=== PATIENT | male | born 1965 ===

== ENCOUNTER 2018-05-11 13:00 | Emergency (ER) | payer OTHER, SELFPAY ==
[2018-05-11 13:06] VITALS: BP 177/96; PULSE 74; RESP 18; TEMP 36.3; O2SAT 98
--- NOTE | 2018-05-11 13:08 | DI.RAD.S_ITS ---
PROCEDURE: XR CHEST 2V INDICATIONS: shortness of breath TECHNIQUE: 2 views of the chest were acquired. COMPARISON: None. FINDINGS: Surgical changes and devices: None. Lungs and pleura: There is blunting of the right costophrenic angle consistent with small pleural effusions or pleural thickening. No left effusion. No acute consolidation. Mediastinum: Mediastinal contours are within normal limits. Heart size is normal. Bones and chest wall: No suspicious bony abnormalities. Soft tissues appear unremarkable. IMPRESSION: 1. Small right pleural effusion or pleural thickening. Dictated by: Stephon Mata M.D. on 05/11/2018 at 13:56 Approved by: Stephon Mata M.D. on 05/11/2018 at 13:57
[2018-05-11 13:20] LABS: Add Manual Diff / Slide Review NO; Basophils Percent Auto 0.6 % (0-2); Eosinophils Percent Auto 0.3 % (2-4); Hematocrit 43.9 % (41-53); Hemoglobin 14.8 g/dL (13.5-17.5); Lymphocytes Percent Auto 14.6 % (25-40); Mean Corpuscular HGB Conc 33.8 % (30-36); Mean Corpuscular Hemoglobin 27.9 PG (26-34); Mean Corpuscular Volume 82.6 fL (80-100); Monocytes Percent Auto 8.9 % (3-14); Neutrophils Absolute Auto 7600 /uL (3000-5900); Neutrophils Percent Auto 75.6 % (50-75); Platelet Count 219 X10^3/uL (150-400); Red Blood Cell Count 5.31 X10^6/uL (4.5-5.9); Red Cell Distribution Width 17.5 % (11.6-14.8); White Blood Cell Count 10.1 X10^3/uL (4.5-11.0)
[2018-05-11 13:32] LABS: Alanine Aminotransferase 33 IU/L (21-72); Albumin 4.1 g/dL (3.5-5.0); Albumin Globulin Ratio 1.2 (1.0-2.8); Alkaline Phosphatase 87 U/L (38-126); Aspartate Aminotransferase 25 IU/L (17-59); BUN Creatinine Ratio 12.2 (6-22); Bilirubin Total 0.6 mg/dL (0.2-1.3); Blood Urea Nitrogen 11 mg/dL (9-20); Calcium 9.3 mg/dL (8.4-10.2); Carbon Dioxide 30 mmol/L (22-32); Chloride 104 mmol/L (98-107); Estimated Glomerular Filt Rate > 60.0 mL/min (>60); Globulin 3.4 g/dL (1.7-4.1); Glucose 131 mg/dL (70-100); HEMOLYSIS < 15 (0-50); Sodium 142 mmol/L (137-145); Total Protein 7.5 g/dL (6.3-8.2)
[2018-05-11 16:11] VITALS: BP 169/101; PULSE 85; RESP 14; O2SAT 98
--- NOTE | 2018-05-11 16:17 | ED.SOB ---
HPI - SOB/Dyspnea <KUSHAL Plaza - Last Filed: 05/11/18 22:14> General Chief Complaint: Shortness of Breath/Dyspnea Stated Complaint: BLURRY VISION,HARD TO BREATH Time Seen by Provider: 05/11/18 16:17 Source: patient Mode of arrival: ambulatory Limitations: no limitations History of Present Illness 52-year-old male that his history of hemothorax and is a smoker here for complaint of having discomfort to his right chest wall over the past several months he has had hemothorax. He reports that he was concerned that he had an increased white count of few days ago and was placed on an antibiotic. He states that he has had pain to the area where the chest tube was since the timeframe that he had the hemothorax. He denies any chest pain to the anterior chest. He denies any shortness of breath. He states that he felt like he may be having some anxiety earlier today however symptom has resolved desires to go home at this timeframe. He states that he has no symptoms at this time. and denies any complications. Related Data Home Medications Medication Instructions Recorded Confirmed aspirin 81 mg PO QPM 05/11/18 05/11/18 zolpidem 1 tab PO BEDTIME PRN 05/11/18 05/11/18 Allergies Allergy/AdvReac Type Severity Reaction Status Date / Time No Known Drug Allergies Allergy Verified 05/11/18 13:08 Review of Systems <KUSHAL Plaza - Last Filed: 05/11/18 22:14> Constitutional Denies chills, Denies fever(s), Denies lethargy and Denies weakness Eyes Denies change in vision, Denies eye discharge, Denies irritation and Denies loss of vision ENT Ears, Nose, Mouth, and Throat: Denies change in voice, Denies neck pain and Denies sore throat Cardiovascular Denies chest pain, Denies irregular heart rhythm, Denies lightheadedness, Denies palpitations, Denies dyspnea, Denies dyspnea on exertion and Denies orthopnea Respiratory Denies cough, Denies dyspnea, Denies dyspnea on exertion and Denies wheezing Gastrointestinal Gastrointestinal: Denies abdominal pain, Denies change in bowel habits, Denies diarrhea, Denies nausea and Denies vomiting Genitourinary Denies hematuria, Denies flank pain, Denies urinary incontinence and Denies urinary urgency Musculoskeletal Denies neck pain Comments: Pain to right lateral chest wall. Integumentary/Breasts Denies pruritus, Denies erythema, Denies rash and Denies wounds Neurologic Denies confusion, Denies loss of vision and Denies weakness Psychiatric Denies anxiety, Denies confusion, Denies depression, Denies homicidal ideation and Denies suicidal ideation Endocrine Denies palpitations Hematologic/Lymphatic Denies easy bruising Allergic/Immunologic Denies wheezing Exam <KUSHAL Plaza - Last Filed: 05/11/18 22:14> Initial Vital Signs Initial Vital Signs: Vital Signs Temperature 97.3 F L 05/11/18 13:06 Pulse Rate 74 05/11/18 13:06 Respiratory Rate 18 05/11/18 13:06 Blood Pressure 177/96 H 05/11/18 13:06 Pulse Oximetry 98 05/11/18 13:06 Const General: cooperative and well developed Nutritional Appearance: well nourished Orientation: alert, awake, oriented x3 and not confused HENMT Mouth: oral mucosae normal and moist mucous membranes Eyes Conjunctivae: conjunctivae normal Sclera: sclerae normal Pupils: PERRL EOM: EOM intact bilaterally Chest Chest: normal inspection of the chest Resp Effort & Inspection: normal respiratory effort, able to speak in complete sentences, no respiratory distress and no use of accessory muscles Auscultation: clear to auscultation bilaterally, no rales, no rhonchi and no wheezes Cardio Rate: regular rate Rhythm: regular rhythm Heart Sounds: no click, no gallops, no murmurs and no rubs Pulses: normal peripheral pulses GI Inspection: non-distended Palpation: soft, no hepatosplenomegaly, No guarding, No pulsatile mass and No tender Auscultation: normal bowel sounds Skin General: no rashes or lesions noted, No jaundice and No petechiae Neuro General: alert, oriented x3, gait normal and no focal motor deficits Speech: speech normal <Gloria Jordan DO - Last Filed: 05/12/18 08:46> Initial Vital Signs Initial Vital Signs: Vital Signs Temperature 97.3 F L 05/11/18 13:06 Pulse Rate 74 05/11/18 13:06 Respiratory Rate 18 05/11/18 13:06 Blood Pressure 177/96 H 05/11/18 13:06 Pulse Oximetry 98 05/11/18 13:06 Course <KUSHAL Plaza - Last Filed: 05/11/18 22:14> Orders Ordered: ED Orders 05/11/18 13:14 Complete Blood Count AUTO DIFF Stat Comprehensive Metabolic Panel Stat Lactate (Lactic Acid) Stat Vital Signs - 8 hr 05/11/18 16:11 05/11/18 16:52 Pulse Rate 85 74 Respiratory Rate 14 19 Blood Pressure 169/101 H Blood Pressure [Left Arm] 169/101 H Pulse Oximetry 98 96 <Gloria Jordan DO - Last Filed: 05/12/18 08:46> Orders Ordered: ED Orders 05/11/18 13:14 Complete Blood Count AUTO DIFF Stat Comprehensive Metabolic Panel Stat Lactate (Lactic Acid) Stat Vital Signs - 8 hr 05/11/18 16:11 05/11/18 16:52 Pulse Rate 85 74 Respiratory Rate 14 19 Blood Pressure 169/101 H Blood Pressure [Left Arm] 169/101 H Pulse Oximetry 98 96 MDM - SOB/Dyspnea <KUSHAL Plaza - Last Filed: 05/11/18 22:14> Lab Data Result diagrams: 05/11/18 13:14 05/11/18 13:14 Lab Results 05/11/18 05/11/18 05/11/18 Range/Units 13:14 13:14 13:14 WBC 10.1 (4.5-11.0) X10^3/uL RBC 5.31 (4.5-5.9) X10^6/uL Hgb 14.8 (13.5-17.5) g/dL Hct 43.9 (41-53) % MCV 82.6 (80-100) fL MCH 27.9 (26-34) PG MCHC 33.8 (30-36) % RDW 17.5 H (11.6-14.8) % Plt Count 219 (150-400) X10^3/uL Neut % (Auto) 75.6 H (50-75) % Lymph % (Auto) 14.6 L (25-40) % [place] % (Auto) 8.9 (3-14) % Eos % (Auto) 0.3 L (2-4) % Baso % (Auto) 0.6 (0-2) % Neut # (Auto) 7600 H (0787-6898) /uL Sodium 142 (137-145) mmol/L Potassium 4.0 (3.4-5.1) mmol/L Chloride 104 (98-107) mmol/L Carbon Dioxide 30 (22-32) mmol/L BUN 11 (9-20) mg/dL Creatinine 0.90 (0.66-1.25) mg/dL Estimated GFR > 60.0 (>60) mL/min BUN/Creatinine Ratio 12.2 (6-22) Glucose 131 H (70-100) mg/dL Lactate 1.0 (0.7-2.1) mmol/L Calcium 9.3 (8.4-10.2) mg/dL Total Bilirubin 0.6 (0.2-1.3) mg/dL AST 25 (17-59) IU/L ALT 33 (21-72) IU/L Alkaline Phosphatase 87 (38-126) U/L Total Protein 7.5 (6.3-8.2) g/dL Albumin 4.1 (3.5-5.0) g/dL Globulin 3.4 (1.7-4.1) g/dL Albumin/Globulin Ratio 1.2 (1.0-2.8) Imaging Data Chest x-ray: Radiologist's impression: [address] [address] XRay Report Signed Patient: ESTUARDO BRIONES [facility]#: [id number] : 1965Acct:[id number] Age/Sex: 52 / MDate of Service: 05/11/18 Loc: ED Accession Number: [id number] Procedure: XR chest 2V Ordering Provider: Gloria Jordan D.O. PROCEDURE: XR CHEST 2V INDICATIONS: shortness of breath TECHNIQUE: 2 views of the chest were acquired. COMPARISON: None. FINDINGS: Surgical changes and devices: None. Lungs and pleura: There is blunting of the right costophrenic angle consistent with small pleural effusions or pleural thickening. No left effusion. No acute consolidation. Mediastinum: Mediastinal contours are within normal limits. Heart size is normal. Bones and chest wall: No suspicious bony abnormalities. Soft tissues appear unremarkable. IMPRESSION: 1. Small right pleural effusion or pleural thickening. Dictated by: Stephon Mata M.D. on 05/11/2018 at 13:56 Approved by: Stephon Mata M.D. on 05/11/2018 at 13:57 ECG Data Interpretation: EKG shows normal sinus rhythm with no ST elevation or depression. No ectopy. Ventricular rate is 61. Pr interval 79. QRS duration of 87. QTC of 404 MDM Narrative Medical decision making narrative: pain into the right lateral ribcage area over the past few months secondary to chest tube insertion. He denies any symptoms at this timeframe. No shortness of breath no anterior chest pain. EKG was obtained and shows sinus rhythm with no ST elevation or depression. No ectopy. Chest x-ray was obtained was negative for any acute findings. CBC and Chem panel were obtained and were negative. Patient did not want wait for any further testing Such as cardiac enzymes. and decided that he wanted to leave. Will have patient follow up with primary care provider and also pulmonology as scheduled. <Gloria Jordan, - Last Filed: 05/12/18 08:46> Lab Data Attestation: I reviewed the patient's lab results. Lab Results 05/11/18 05/11/18 05/11/18 Range/Units 13:14 13:14 13:14 WBC 10.1 (4.5-11.0) X10^3/uL RBC 5.31 (4.5-5.9) X10^6/uL Hgb 14.8 (13.5-17.5) g/dL Hct 43.9 (41-53) % MCV 82.6 (80-100) fL MCH 27.9 (26-34) PG MCHC 33.8 (30-36) % RDW 17.5 H (11.6-14.8) % Plt Count 219 (150-400) X10^3/uL Neut % (Auto) 75.6 H (50-75) % Lymph % (Auto) 14.6 L (25-40) % [place] % (Auto) 8.9 (3-14) % Eos % (Auto) 0.3 L (2-4) % Baso % (Auto) 0.6 (0-2) % Neut # (Auto) 7600 H (7192-4476) /uL Sodium 142 (137-145) mmol/L Potassium 4.0 (3.4-5.1) mmol/L Chloride 104 (98-107) mmol/L Carbon Dioxide 30 (22-32) mmol/L BUN 11 (9-20) mg/dL Creatinine 0.90 (0.66-1.25) mg/dL Estimated GFR > 60.0 (>60) mL/min BUN/Creatinine Ratio 12.2 (6-22) Glucose 131 H (70-100) mg/dL Lactate 1.0 (0.7-2.1) mmol/L Calcium 9.3 (8.4-10.2) mg/dL Total Bilirubin 0.6 (0.2-1.3) mg/dL AST 25 (17-59) IU/L ALT 33 (21-72) IU/L Alkaline Phosphatase 87 (38-126) U/L Total Protein 7.5 (6.3-8.2) g/dL Albumin 4.1 (3.5-5.0) g/dL Globulin 3.4 (1.7-4.1) g/dL Albumin/Globulin Ratio 1.2 (1.0-2.8) ECG Data Attestation: I personally reviewed and interpreted this ECG as follows: Interpretation: Normal sinus rhythm rate [address] changes or T-wave inversions Discharge Plan Departure Patient Disposition: Home Clinical Impression: Chest wall pain Discharge Date/Time: 05/11/18 16:53 Interventions: ED Discharge Assessment Last Done: 05/11/18 16:52 Instructions: DI for Atypical Chest Pain Activity Restrictions/Additional Instructions: laboratory results EKG and chest x-ray were unremarkable today. Signs and symptoms presents as chest wall pain at secondary to the chest tube that she had a few months ago. Follow up with pulmonology as scheduled later this week. For any worsening symptoms return to the emergency room. Follow up with Your primary care provider. Prescriptions: No Action aspirin 81 mg Tablet,Delayed Release (Dr/Ec) 81 mg PO QPM RF: 0 zolpidem 5 mg tablet 1 tab PO BEDTIME PRN (Reason: Sleep) RF: 0 Referrals: [facility] [Provider Group] <Gloria Jordan DO - Last Filed: 05/12/18 08:46> Cosign ED Attending Jacob Attestation: I was immediately available in the department for consultation. Documentation has been reviewed. I agree with assessment and plan.
--- NOTE | 2018-05-11 16:19 | PC.NURSE ---
Patient states he is recovering from a pnumothorax from January. States he had worsening SOB today and he became anxious. States now all symptoms have resolved and he would like to be discharged to catch his sons football game. Informed of wait and encouraged to let me know if he needs anything. Lungs clear, mild anxiety, denies [employer], and SOB.
[2018-05-11 16:52] VITALS: BP 169/101; PULSE 74; RESP 19; O2SAT 96
== END 2018-05-11 16:53 | disposition home or self-care (01) ==
PROVIDERS: Emergency Medicine; Emergency Provider Nurse Practitioner Family
DX: R07.89 Other chest pain (principal)
CPT/HCPCS: 36591; 71046; 80053; 83605; 85025; 93005; 99283; 99285